=== PATIENT | male | born 1965 | race Two or more races ===

== ENCOUNTER 2017-05-05 13:00 | Outpatient (RCR) ==
--- NOTE | 2017-05-01 15:50 | RS.OPPTEV2 ---
Date of Note: 04/29/17 Visit #: 1 Date of Evaluation: 04/29/17 Payer Source: Medicaid Treatment Diagnosis: Back pain History of Condition/Mechanism of Injury:: Mr. Hansen states he had an increase in back pain that started two months ago. Patient reports a history of back pain for over 20 years. States pain has been progressively getting worse. Reports he fell down a flight of stairs 23 years ago. Functional Limitations: Sleep, Self Care, ADL's, Reaching, Pushing, Pulling, Lifting, Carrying, Sitting, Standing, Bending, Squatting, Ambulation, Community Access/Integration Current Subjective/complaints:: Patient reports low to mid back pain. Reports he has numbness in the entire left LE and in the right LE to the knee. He is taking pain medication and muscle relaxant. States he has weakness in the legs and they "lock up". States left LE is worse. Describes pain in the left side, just below the ribcage. He uses a heating pad, which helps temporarily. He reports he gets plenty of sleep due to taking Seroquel. States he cannot lay on his back. He has to sleep on his side. He thinks his left LE is longer than the right. Medical History Smoking Status: Current every day smoker Diagnostic Testing/Imaging:: MRI of lumbar spine w/o contrast on 04/15/17: Impression: Mild multilevel degenerative changes, worse at L5-S1 with a minute central disc protrusion as well as annular fissure present. There is no significant spinal canal stenosis. 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 Hx Home Medications: pain medication and muscle relaxant Patient's Goals: His goal is to get relief of back pain. Pain Assessment - Pain Description Pain Location: middle to low back, left flank Current Pain Intensity: not quantified Worst Pain Intensity: not quantified Functional Outcome Measure - G Codes & Severity Modifier G Codes & Modifier: NA Source of G Code score: NA Observation - Observation Inspection: Standing posture without shoes, patient demonstrates bilateral pes planus, worse on right LE. Posture: Forward Head, Rounded Shoulders, Decreased Lumbar Lordosis Gait - Gait Pattern Gait Comments: Patient ambulates without an assistive device. Demonstrates no obvious gait deviation. - ROM Comments: Lumbar AROM is WFL's with reports of pain with all movement. Reports increased pain immediately with attempts of left sidebending. Bilateral LE AROM is WFL's. - Strength Trunk Rotation: 4 Good Comments: Bilateral LE strength is 4 to 4+/5 throughout. Patient reports ipsilateral lateral thigh pain when MMT ankle DF. - Special Tests Comments: Unable to perform valid Special Tests due to reports of pain with all movement of the LE's and spine. Palpation Comments:: Patient reports slight tenderness with palpation to the lumbar spine and paraspinals. Reports soreness with palpation to the left quadratus lumborum. Sensation - Sensation Comments: States he can feel deep pressure, but states both legs are numb. States entire left LE is numb and right LE is numb from the right knee to the ankle. Additional Comments: Additional Comments: Patient made and received texts and phone calls during the evaluation. He left the room at least 3 times to help a friend find his way to the department. Patient demonstrated manic type behavior with talking and movement in the department. Interventions - Exercise/Activities/Manual Therapy Exercises/Activities: NA Manual Therapy: NA - Charges Total Direct Minutes: 65 mins Total Treatment Time: 65 mins Procedures billed for this date of service:: [employer] X 4 Assessment Assessment: Patient presents to therapy with a diagnosis of back pain. He reports middle and low back pain, with emphasis on the left flank. Reports numbness in both LE's. States he is unable to tolerate prolonged sitting. Unable to perform valid Special tests for the lumbar spine, hips, or pelvis due to patient's reports of pain with all movement. Patient demonstrates potential to benefit from stretching and stability exercises to the low back and LE, and possibly modalities to reduce pain. Patient Education: Education of diagnosis, Body/Joint mechanics, Home Exercise Program, Activity Modification, Education of Plan of Care Rehab Potential: Fair Short Term Goals Goal #1: Patient independent and compliant with HEP. Goal to be met by: 05/15/17 Goal #2: Pt will perform exercises in depart. with minimal increased back pain. Goal to be met by: 05/15/17 Goal #3: LE symptoms localized to the low back. Goal to be met by: 05/15/17 Cryptologic Support Specialist Goals Goal #1: Pt knows HEP and to continue ex's to maintain functional level at D/C. Goal to be met by: 06/05/17 Goal #2: Pt able to sit as needed with minimal back pain. Goal to be met by: 06/05/17 Goal #3: Patient to perform ADL's with minimal back pain. Goal to be met by: 06/05/17 Goal #4: Pt to demonstrate improved awareness of body mechanics. Goal to be met by: 06/05/17 Plan - Treatment to be Provided Procedures: Therapeutic Exercises, Therapeutic Activity, Patient Education Modalities: Electrical Stimulation, Hot Packs - Treatment Plan Frequency: 3 X week Duration: 3 weeks ORDER # VISITS AND/OR THROUGH DATE: 06/05/17 - Treatment Code (1) Back pain Code(s): M54.9 - DORSALGIA, UNSPECIFIED Qualifiers: Back pain location: low back pain Chronicity: unspecified Back pain laterality: bilateral Sciatica presence: unspecified whether sciatica present Qualified Code(s): M54.5 - Low back pain
--- NOTE | 2017-05-05 14:09 | RS.OPPTDN ---
Subjective Date of Note: 05/05/17 Visit #: 2 Date of Evaluation: 04/29/17 Payer Source: Medicaid Treatment Diagnosis: Back pain Current Subjective/complaints:: Reports most of his back pain is in the L midback today,but hurts , " in all of my back." Pain Assessment - Pain Description Pain Location: middle to low back, left flank Pain Description: Dull, Aching Current Pain Intensity: 8 to 10 /10 - Heat/Cryotherapy Treatment: Hot Pack (20 mins. prior to exercises) Interventions - Exercise/Activities/Manual Therapy Exercises/Activities: 25 mins. total ,instructed in SKTC,DKTC,lower trunk rotation,90 90 hamstring stretches.Recommended 10/25 ,2-3 x / day. Total minutes of Exercise: 25 Manual Therapy: NA Total minutes of Manual Therapy: 0 HOME EXERCISE PROGRAM: SKTC , DKTC , lower trunk rotation,90/90 hamstring stretches. - Charges Total Direct Minutes: 25 Total Treatment Time: 45 Procedures billed for this date of service:: hp,ex 2 Assessment: Patient initially has muscle guarding present,but improves as exercises progress.He responds well to hamstring stretches,able to achieve full knee extension bilaterally.He is tighter in the L LE ,as compared to the R. Patient Education: Education of diagnosis, Body/Joint mechanics, Home Exercise Program, Home Safety, Activity Modification, Education of Plan of Care Patient demonstrates compliance with HEP?: Yes Short Term Goals Goal #1: Patient independent and compliant with HEP. Goal to be met by: 05/15/17 Progress towards Goal:: Progressing Goal #2: Pt will perform exercises in depart. with minimal increased back pain. Goal to be met by: 05/15/17 Goal #3: LE symptoms localized to the low back. Goal to be met by: 05/15/17 Long-Term Goals Goal #1: Pt knows HEP and to continue ex's to maintain functional level at D/C. Goal to be met by: 06/05/17 Progress towards goal: Progressing Goal #2: Pt able to sit as needed with minimal back pain. Goal to be met by: 06/05/17 Goal #3: Patient to perform ADL's with minimal back pain. Goal to be met by: 06/05/17 Goal #4: Pt to demonstrate improved awareness of body mechanics. Goal to be met by: 06/05/17 Plan PLAN OF CARE EXPIRES ON:: 06/05/17 ORDER # VISITS AND/OR THROUGH DATE: 06/05/17 PLAN: Continue Plan of Care
--- NOTE | 2017-05-09 13:46 | RS.CXNS ---
Date of scheduled appointment: 05/09/17 Type: No Show (Unknown)
--- NOTE | 2017-05-12 13:11 | RS.CXNS ---
Date of scheduled appointment: 05/12/17 Type: No Show (Unknown)
--- NOTE | 2017-05-16 13:08 | RS.CXNS ---
Date of scheduled appointment: 05/16/17 Type: No Show Reason for Cancel/NS: Unknown.
--- NOTE | 2017-05-16 13:09 | RS.QUICKDC ---
Discharge from PT Date of Discharge: 05/16/17 Number of Visits: 2 Reason for Discharge: No contact from patient since 05-05-17 visit.Today was the 3rd no show / no call.
== END 2017-05-17 ==
PROVIDERS: ATTEND Nurse Practitioner Family
DX: M54.9 Dorsalgia, unspecified (principal)